=== PATIENT | male | born 1995 | race Caucasian/White ===

== ENCOUNTER 2022-10-31 22:27 | Emergency (ER) | payer OTHER, BC ==
[2022-10-31] MEDS ORDERED: Sodium Chloride 0.9% 2.5 ML Syringe FLUSH PRN (23:54)
[2022-10-31] MEDS ORDERED: Ketorolac 30 MG/ML SDV IVPUSH ONE (23:54)
[2022-10-31] MEDS ORDERED: HYDROmorphone 1 MG/ML Syringe IVPUSH ONE (23:54)
[2022-10-31] MEDS ORDERED: Sodium Chloride 0.9% 10 ML Syringe FLUSH PRN (23:54)
[2022-11-01 01:17] LABS: CARBON DIOXIDE,CO2 23.1 mmol/L (21.0-32.0)
[2022-11-01] MEDS ORDERED: Iopamidol 755 MG/ML 500 ML Multipack Bottle IVPUSH STA (02:26)
== END 2022-11-01 03:55 | disposition home or self-care (01) ==
LOC: MW.ED 22:27
DX: S22.20XA Unspecified fracture of sternum, initial encounter for closed fracture (principal); V86.92XA Unspecified occupant of snowmobile injured in nontraffic accident, initial encounter; Y92.410 Unspecified street and highway as the place of occurrence of the external cause
CPT/HCPCS: 36415; 71046; 71046-26; 71260; 71260-26; 80053; 83690; 84484; 85025; 85610; 93005; 99285; Q9967